=== PATIENT | female | born 1965 | race Caucasian/White ===

== ENCOUNTER → 2017-05-11 | Outpatient (CLI) | payer BC, OTHER ==
--- NOTE | 2017-05-11 08:40 | DIAGNOSTIC IMAGING REPORT ---
MRCP CLINICAL HISTORY: Duodenal diverticulum. COMPARISON STUDY: No priors. TECHNIQUE: MRCP is performed utilizing various T2-weighted sequences in the axial and coronal planes. IV contrast was not administered for this examination. 3-D reformats are created and assessed. The examination is modestly degraded by motion artifact. FINDINGS: The gallbladder is surgically absent. Minimal central intrahepatic biliary ductal dilatation is likely related to previous surgery. The common bile duct measures up to 7 mm in diameter. There are no intraluminal filling defects to suggest choledocholithiasis. The pancreatic duct is normal in caliber. The liver, spleen, pancreas, adrenal glands, and kidneys are normal as visualized. There is no bowel obstruction. No abdominal ascites is identified. No upper abdominal lymphadenopathy is seen. A duodenal diverticulum is incidentally noted and measures up to 3.4 cm. This is best seen on axial FIESTA image #16. There is no pleural effusion. The bony structures are intact as visualized. IMPRESSION: 1. Unremarkable MRCP noting status post cholecystectomy. 2. A duodenal diverticulum is incidentally noted as clinically stated. Dictated: 05/11/2017 7:25 AM Transcribed: 05/11/2017 8:40 AM [email or web address] Electronically signed by: Jorge Lyon M.D. 05/11/2017 8:50 AM Dictated Date/Time: 05/11/2017 7:25 AM
== END | disposition home or self-care (01) ==
LOC: C.MRI 06:20
PROVIDERS: ATTEND Physician Assistant
DX: K57.10 Diverticulosis of small intestine without perforation or abscess without bleeding (principal)

== ENCOUNTER → 2017-10-05 | Outpatient (CLI) | payer BC, OTHER ==
[2017-10-05 16:15] LABS: BASO % 0.2 %; BASO ABS # 0.01 K/uL (0-0.2); EOS % 1.2 %; EOS ABS # 0.05 K/uL (0-0.5); HEMATOCRIT 38.6 % (37-47); HEMOGLOBIN 13.3 g/dL (12.0-16.0); IG# 0.01 K/uL (0.00-0.02); LYMPH % 28.5 %; LYMPH ABS # 1.17 K/uL (1.2-3.4); MEAN CELL VOLUME 86.5 fL (80-100); MEAN CORPUSCULAR HEMOGLOBIN 29.8 pg (25-34); MEAN CORPUSCULAR HGB CONC 34.5 g/dl (32-36); MEAN PLATELET VOLUME 9.8 fL (7.4-10.4); MONO % 13.9 %; MONO ABS # 0.57 K/uL (0.11-0.59); NEUT ABS # 2.29 K/uL (1.4-6.5); PLATELET COUNT 160 K/uL (130-400); RED CELL DISTRIBUTION WIDTH CV 12.7 % (11.5-14.5); RED CELL DISTRIBUTION WIDTH SD 40.2 fL (36.4-46.3)
[2017-10-05 16:48] LABS: BLOOD UREA NITROGEN 9 mg/dl (7-18); CALCIUM 9.5 mg/dl (8.5-10.1); CARBON DIOXIDE 27 mmol/L (21-32); CREATININE 0.68 mg/dl (0.60-1.20); GLUCOSE 84 mg/dl (70-99); POTASSIUM 3.7 mmol/L (3.5-5.1); SODIUM 140 mmol/L (136-145)
== END | disposition home or self-care (01) ==
LOC: C.LAB1850 15:46
PROVIDERS: ATTEND Internal Medicine Clinical Cardiac Electrophysiology
DX: R07.9 Chest pain, unspecified (principal)